=== PATIENT | male | born 1950 | race Caucasian/White ===

== ENCOUNTER 2019-04-30 10:34 | Inpatient (IN) ==
--- NOTE | 2019-03-31 08:35 | PAT Medication Instructions ---
Medication Instructions Date of Service March 31, 2019 Home Medications Garlique 1 tab PO QAM acetaminophen [Tylenol Extra Strength] 1,000 mg PO QAM amlodipine 10 mg PO QAM ascorbic acid (vitamin C) 1,000 mg PO QAM atorvastatin 20 mg PO QAM hydrochlorothiazide 25 mg PO QAM ibuprofen 800 mg PO QAM lactobacillus combination no.4 [Probiotic] 3,000 mmu cells PO QAM metformin 500 mg PO QPM multivitamin 1 tab PO QAM omeprazole 20 mg PO QAM ASK your surgeon for instructions ibuprofen 800 mg PO QAM STOP taking 2 weeks before surgery Garlique 1 tab PO QAM DO NOT take the morning of surgery ascorbic acid (vitamin C) 1,000 mg PO QAM hydrochlorothiazide 25 mg PO QAM lactobacillus combination no.4 [Probiotic] 3,000 mmu cells PO QAM multivitamin 1 tab PO QAM Take morning of surgery With a small sip of water, OTHERWISE NOTHING TO EAT OR DRINK AFTER MIDNIGHT: acetaminophen [Tylenol Extra Strength] 1,000 mg PO QAM (if needed, may be taken up to four hours before surgery) amlodipine 10 mg PO QAM atorvastatin 20 mg PO QAM omeprazole 20 mg PO QAM Other Notes If you have any questions please call us at [phone] or [phone] or [phone] or [phone]
--- NOTE | 2019-03-31 10:46 | Anesthesiology Consultation ---
Date of Service March 31, 2019 Assessment & Plan (1) Encounter for pre-operative examination: Chart Review Chart Review: Pending: Refer to Additional Notes / Consult section and Patient seen in Pre Admission Testing Teaching & Discussion Instructed NPO after midnight before surgery, except medications with 15 cc of water. Medication instructions provided according to the PAT guidelines. History Surgery Operation Date: 04/30/19 07:00 Proposed Procedures p Right Total Knee Arthroplasty - Lamin Pereira DO Height/Weight Height: 6 ft 0.75 in Weight: 107.7 kg Allergies Allergy/AdvReac Type Severity Reaction Status Date / Time Penicillins Allergy Unknown Rash Verified 03/24/19 08:06 Medications Home Medications Medication Instructions Recorded Confirmed Last Taken Garlique 1 tab PO QAM 03/24/19 03/24/19 Unknown acetaminophen [Tylenol Extra 1,000 mg PO QAM 03/24/19 03/24/19 Unknown Strength] amlodipine 10 mg PO QAM 03/24/19 03/24/19 Unknown ascorbic acid (vitamin C) [Vitamin 1,000 mg PO QAM 03/24/19 03/24/19 Unknown C] atorvastatin 20 mg PO QAM 03/24/19 03/24/19 Unknown hydrochlorothiazide 25 mg PO QAM 03/24/19 03/24/19 Unknown ibuprofen 800 mg PO QAM 03/24/19 03/24/19 Unknown lactobacillus combination no.4 3,000 mmu cells PO QAM 03/24/19 03/24/19 Unknown [Probiotic] metformin 500 mg PO QPM 03/24/19 03/24/19 Unknown multivitamin 1 tab PO QAM 03/24/19 03/24/19 Unknown omeprazole 20 mg PO QAM 03/24/19 03/24/19 Unknown Past Medical History Medical History Chronic back pain Diabetes mellitus, type 2 A1C 6.9% on pre op labs GERD (gastroesophageal reflux disease) Gout HX Hyperlipidemia Hypertension Osteoarthritis Exercise / Class Metabolic Activity II 4-5 Yardwork/Stairs/Walk up hill (Denies CP or SOB with yardwork and stairs) Past Surgical History Surgical History Bunion of great toe R/L H/O toe surgery LEFT FOOT History of carpal tunnel release R/L History of cataract surgery R/L History of herniorrhaphy History of hip surgery LEFT-DUE TO INFECTION S/P YAW History of repair of rotator cuff RIGHT History of total hip arthroplasty LEFT Nausea and vomiting after administration of anesthetic agent SEVERE Past Anesthesia History No Hx of Anesthesia Complications (other than PONV) and No Family Hx of Anesthesia Complications History of PONV No Hx of Motion Sickness and History of PONV (especially with YAW (had GA)) Social History Smoking Status: Never smoker Do You Dip or Chew Tobacco: No Hx Alcohol Use: No Hx Substance Use: No Review of Systems Pt denies any recent chest pain, shortness of breath, palpitations, cough, fever or URI. Physical Exam Vital Signs BP: 105/70 P: 61bpm SPO2: 98% RA T: 98.1 F R: 16 Constitutional + obese ENMT Mouth: + dental restorations (few gold caps); no chipped teeth and no loose teeth Thyromental Distance: < 3.5 Finger Breadths (3) Mallampati Class: III Neck + thick neck; neck extension not limited Respiratory normal respiratory effort Auscultation: lungs clear to auscultation bilaterally Cardiovascular Rate/Rhythm: regular rate and regular rhythm Heart Sounds: no murmur Vessels: no carotid bruit Extremities: no edema Testing Laboratory Results 03/31/19 10:56 03/31/19 10:56 PT 11.6 Seconds (9.0-12.0) 03/31/19 10:56 INR 1.1 (0.9-1.1) 03/31/19 10:56 APTT 28.3 Seconds (21.0-31.0) 03/31/19 10:56 Hemoglobin A1c 6.9 % (4.5-5.6) H 03/31/19 10:56 Blood Type A Positive 03/31/19 10:56 Antibody Screen NEGATIVE 03/31/19 10:56 *PER VERBAL FROM PATIENT'S PCP, HE HAS A H/O CKD AND THIS IS HIS BASELINE. Electrocardiogram Date: 03/31/19 Findings: + SB @ (58bpm with 1st degree AV block) Left axis deviation. Chest X-Ray Date: 03/31/19 Findings: + NAD
--- NOTE | 2019-03-31 11:54 | XRay Report ---
XR chest Pre-admission PA/Lat HISTORY: 68 years-old Male PAT preoperative exam. No acute chest complaints COMPARISON: None available TECHNIQUE: PA and lateral views of the chest FINDINGS: Cardiomediastinal and hilar silhouettes are within normal limits. No pneumothorax, pleural effusion, focal airspace consolidation or overt pulmonary edema. Degenerative changes of the shoulders and spin e. IMPRESSION: No acute process. The above report was generated using voice recognition software. It may contain grammatical, syntax o r spelling errors. Electronically signed by: Kennedy Mireles M.D. 03/31/2019 11:53 AM
[2019-03-31 13:02] LABS: Basophils # (auto) 0.01 K/uL (0-0.2); Basophils % (auto) 0.1 %; Eosinophils # (auto) 0.07 K/uL (0-0.5); Eosinophils % (auto) 0.9 %; Hematocrit (blood only) 42.4 % (42-52); Immature Granulocytes # (auto) 0.04 K/uL (0.00-0.02); Immature Granulocytes % (auto) 0.5 %; Lymphocytes # (auto) 2.19 K/uL (1.2-3.4); Lymphocytes % (auto) 27.5 %; Mean Corpuscular Hemoglobin 32.6 pg (25-34); Mean Corpuscular Hgb Conc 35.4 g/dL (32-36); Mean Corpuscular Volume 92.2 fL (80-100); Mean Platelet Volume 10.5 fL (7.4-10.4); Monocytes # (auto) 0.83 K/uL (0.11-0.59); Monocytes % (auto) 10.4 %; Neutrophils # (auto) 4.81 K/uL (1.4-6.5); Neutrophils % (auto) 60.6 %; Platelet Count 179 K/uL (130-400); RDW Coefficient of Variation 13.1 % (11.5-14.5); RDW Standard Deviation 43.5 fL (36.4-46.3); White Blood Count 7.95 K/uL (4.8-10.8)
[2019-03-31 13:20] LABS: INR 1.1 (0.9-1.1); Partial Thromboplastin Time 28.3 Seconds (21.0-31.0); Prothrombin Time 11.6 Seconds (9.0-12.0)
[2019-03-31 13:27] LABS: Estimated Average Glucose 151 mg/dl; Hemoglobin A1C 6.9 % (4.5-5.6)
[2019-03-31 13:33] LABS: BUN Creatinine Ratio 15.6 (10-20); Calcium 9.6 mg/dl (8.5-10.1); Creatinine Clr Calc Pharmacy 58.6 ml/min; Est GFR (African American) 51.7; Est GFR (Non-African American) 44.6; Potassium 3.3 mmol/L (3.5-5.1)
--- NOTE | 2019-04-29 14:30 | History & Physical Report ---
Date of Service April 29, 2019 Assessment & Plan (1) Osteoarthritis of right knee: We will proceed with a right total knee arthroplasty. Postoperatively he will be placed on aspirin for DVT prophylaxis. He will stay in the hospital for postop medical management. We plan to discharge him to a rehab facility. Present on Admission?: Yes History of Present Illness Chief Complaint: Primary osteoarthritis of the right knee Primary Care Provider: Александр Lujan MD Jarred is a pleasant 68-year-old male with a long history of right knee pain. X-rays and clinical examination have been diagnostic for advanced osteoarthritis of the right knee. After failing conservative treatment, he has elected to proceed with a right total knee arthroplasty. Discussions with his family, he is a bit of a hoarder. His family is concerned about him being able to take care of himself at home. We will look to send him to rehab postoperatively to make sure he is in a clean environment while the wound heals. Allergies Allergy/AdvReac Type Severity Reaction Status Date / Time Penicillins Allergy Unknown Rash Verified 03/24/19 08:06 Home Medications Home Medications Medication Instructions Recorded Confirmed Type Garlique 1 tab PO QAM 03/24/19 03/24/19 History acetaminophen [Tylenol Extra 1,000 mg PO QAM 03/24/19 03/24/19 History Strength] amlodipine 10 mg PO QAM 03/24/19 03/24/19 History ascorbic acid (vitamin C) [Vitamin 1,000 mg PO QAM 03/24/19 03/24/19 History C] atorvastatin 20 mg PO QAM 03/24/19 03/24/19 History hydrochlorothiazide 25 mg PO QAM 03/24/19 03/24/19 History ibuprofen 800 mg PO QAM 03/24/19 03/24/19 History lactobacillus combination no.4 3,000 mmu cells PO QAM 03/24/19 03/24/19 History [Probiotic] metformin 500 mg PO QPM 03/24/19 03/24/19 History multivitamin 1 tab PO QAM 03/24/19 03/24/19 History omeprazole 20 mg PO QAM 03/24/19 03/24/19 History Past Med/Surg History Medical History Chronic back pain Diabetes mellitus, type 2 A1C 6.9% on pre op labs GERD (gastroesophageal reflux disease) Gout HX Hyperlipidemia Hypertension Osteoarthritis Surgical History Bunion of great toe R/L H/O toe surgery LEFT FOOT History of carpal tunnel release R/L History of cataract surgery R/L History of herniorrhaphy History of hip surgery LEFT-DUE TO INFECTION S/P YAW History of repair of rotator cuff RIGHT History of total hip arthroplasty LEFT Nausea and vomiting after administration of anesthetic agent SEVERE Social History Preferred Language: [place] Communication Ability: Effective 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 Beliefs That Will Affect Care: None Current Living Situation: Alone Other Information That Helps Us Care for You: No Feels Safe at Home: Yes Safety Concerns: Feels Safe At This Time Smoking Status: Never smoker Do You Dip or Chew Tobacco: No ; Second Hand Exposure: No ; Hx Alcohol Use: No Hx Substance Use: No Review of Systems All systems reviewed & are unremarkable except as noted in HPI & below Physical Exam Constitutional: WD/WN, vitals as above Eyes: PERRL, conjunctivae normal, anicteric sclerae ENMT: external ear and nose normal, oropharynx normal Neck: trachea midline, no thyromegaly Respiratory: normal respiratory effort Cardiovascular: RRR, no murmur, no edema Gastrointestinal (Abdomen): normal bowel sounds, soft, nontender, no hepatosplenomegaly Musculoskeletal: On physical examination of the right knee there is a trace effusion. There is near full range of motion and no evidence of instability. There is significant tenderness palpation along the medial and lateral joint lines and over the distal femoral condyles. Psychiatric: A+Ox3, euthymic affect Results & Data Diagnostic Findings Radiographs of the right knee demonstrate advanced osteoarthritis with joint space narrowing osteophyte formation and [id number] articulation.
[~2019-04-30 10:34] MED LIST: ACETAMINOPHEN 500 MG TAB PO SCH; BUPIVACAINE 0.5 % 5 MG/1 ML PF 10ML VIAL ONE; FAMOTIDINE 20 MG TAB PO SCH; GABAPENTIN 900 MG DOSE PO SCH; LR 500ML BOLUS, THEN 15ML/HR IV SCH; LR 60ML/HR IV SCH; ORTHO JOINT ANESTHETIC ONE; ROPIVACAINE 0.5% 5 MG/ML 30 ML VIAL ONE; ROPIVACAINE 0.5% HCL/PF 150 MG, BUPIVACAINE 0.5% MPF 30 ML, EPINEPHrine 30MG/30ML (OR U... INSTIL SCH; TRANEXAMIC ACID 1,000 MG **IV Intra-op IV SCH; TRANEXAMIC ACID 1,000 MG **IV Pre-op IV SCH; VANCOMYCIN HCL 1,750 MG in SODIUM CHLORIDE 0.9% 500 ML IV SCH
[2019-04-30] MEDS ORDERED: PROPOFOL IV EMULSION 10 MG/ML 20 ML VIAL IV ONE ×3 (11:18→14:36)
[2019-04-30] MEDS ORDERED: fentaNYL citrate 100 MCG/2 ML VIAL ONE (11:18)
[2019-04-30] MEDS ORDERED: MIDAZOLAM HCL 1 MG/ML 2ML VIAL ONE (11:18)
[2019-04-30] MEDS ORDERED: LIDOCAINE HCL 2% 2 ML VIAL/AMP(20MG/ML) INFIL ONE (11:18)
--- NOTE | 2019-04-30 11:43 | History & Physical Bridge Note ---
Date of Service April 30, 2019 History & Physical Bridge Note I have examined the patient, reviewed the History & Physical and in the interval since the performance of the History & Physical I have noted the following changes of clinical significance: no changes noted
[2019-04-30] MEDS ORDERED: ATROPINE SULFATE 0.1 MG/ML 10ML SYR IV PRN (12:16)
[2019-04-30] MEDS ORDERED: ONDANSETRON INJ 2 MG/ML 2 ML VIAL IV PRN ×2 (12:16→16:52)
[2019-04-30] MEDS ORDERED: fentaNYL citrate 100 MCG/2 ML VIAL IV PRN (12:16)
[2019-04-30] MEDS ORDERED: ePHEDrine sulfate 50 MG/ML AMP IV PRN (12:16)
[2019-04-30] MEDS ORDERED: TRANEXAMIC ACID 1,000 MG in 0.9 % SODIUM CHLORIDE 100 ML IV ONE (14:05)
[2019-04-30] MEDS ORDERED: TRANEXAMIC ACID 1,000 MG in 0.9 % SODIUM CHLORIDE 100 ML IV SCH (14:15)
--- NOTE | 2019-04-30 15:12 | Operative Report ---
Post Operative Report Pre & Post Diagnosis Operation Date: 04/30/19 13:20 Pre-Op Diagnosis: Right Knee Primary Osteoarthritis Post-Op Diagnosis: Right Knee Primary Osteoarthritis Procedure Operation Date: 04/30/19 13:20 Actual Procedures p Right Total Knee Arthroplasty(Right) - Lamin Pereira DO Surgeon Lamin Pereira DO Wood Furniture Assembler Lamin Jackson PAC Estimated Blood Loss 20 Findings Consistent with Post-Op Diagnosis Specimens Right femoral and tibial bone Complications none Disposition Disposition: Recovery Room Indications Jarred is a pleasant 68-year-old male who presented my office with chronic increasing right knee pain. X-rays and clinical examination were diagnostic for primary osteoarthritis of the right knee. After failing conservative treatment, he elected to proceed with a right total knee arthroplasty. Description of Procedure Implants used: I used a Biomet Vanguard total knee arthroplasty system with a size 70 femur, 75 tibia, 37 patella, and a size 12 PS plus polyethylene bearing. All components were cemented in place with Palacos G cement. The patient arrived [facility] for the above procedure. There were seen in the preoperative holding area and the operative extremity was identified and signed. There were given a preoperative antibiotic, a spinal anesthetic and an adductor nerve block. There were taken back to the operating room and laid on the table in supine position. There were given basic sedation. The operative knee was then prepped and draped in sterile fashion. A timeout was done, and the patient and the operative extremity was properly identified. A midline incision was made directly over the patella. Dissection was taken down to the extensor mechanism. A subvastus arthrotomy was used. The medial retinaculum was released and the fat pad was mostly left intact. The knee was flexed and the ACL, PCL, and meniscus were removed. A drill was sent down the center of the femoral canal followed by an intramedullary paola. Off that paola a distal femoral cutting block was placed. 9 mm was resected off the distal femur at 5 of valgus. A posterior referencing AP sizing guide was then placed on the distal femur. The femur measured to be a size 70. 2 drill holes were placed in 3 of external rotation. A 4-in-1 cutting block was then impacted into place. Anterior posterior and chamfer cuts were then made. The posterior stabilizing box guide was then impacted into place and the box was resected for the posterior stabilizing component. The proximal tibia was then exposed. A drill was sent down the center of the tibial canal followed by an intramedullary paola. Off that paola a proximal tibial resection guide was placed. The proximal tibia was then resected. The tibia measured to be a size 75. The tibial plate was then placed in the appropriate rotation and the tibia was punched. The posterior aspect of the knee was then opened up and any additional meniscus fragments and osteophytes were removed. Trial components were then placed. I used a size 12 PS plus polyethylene insert. The knee was brought through a full range of motion and felt to be stable. The patella was then everted and 8 mm was resected off the posterior aspect of the patella. The patella measured to be a size 37. 3 peg holes were then drilled. A trial patella was placed. The knee was once again brought through a full range of motion and felt to be stable. Trial components were then removed. The surrounding soft tissues were injected with 100 cc of an orthopedic pain control cocktail. All components were then cemented into place with Palacos G cement. The final polyethylene insert was then snapped into place and the anterior bar was locked. Once cement was dry the tourniquet was deflated. Hemostasis was obtained. A dilute betadyne lavage was then done for 3 minutes. The joint was then irrigated with normal saline solution. The subvastus arthrotomy was then closed with #1 Vicryl suture. The skin was closed with 2-0 Vicryl, 3-0V lock suture, and singh. A soft compressive dressing was placed. The patient was then transferred to a hospital bed and taken to the postanesthesia care unit in stable condition. Sandeep bradley tolerated the procedure well. I attest to the content of the Intraoperative Record and any orders documented therein. Any exceptions are noted below.
--- NOTE | 2019-04-30 15:42 | Anesthesiology Progress Note ---
Date of Service April 30, 2019 Anesthesia Post Procedure Vital Signs Vital Signs: Temp Pulse Resp BP Pulse Ox 04/30/19 11:17 36.4 C L 64 20 128/82 99 Transfer of Care Handoff Completed per policy Notes Mental Status: alert / awake / arousable Patient Amnestic to Procedure: Yes Nausea / Vomiting: adequately controlled Pain: adequately controlled Airway Patency, RR, SpO2: stable & adequate BP & HR: stable & adequate Hydration State: stable & adequate Neuraxial Anesthesia: was administered and sensory block is resolving Anesthetic Complications: no major complications apparent and Pt Satisfied with anesthetic care
--- NOTE | 2019-04-30 15:54 | XRay Report ---
XR knee RT 2V routine HISTORY: 68 years-old Male Surgical Post Op postoperative exam. Right knee total joint arthroplasty COMPARISON: Right knee radiographs 02/17/2019 TECHNIQUE: 2 views of the right knee FINDINGS: Right knee total joint arthroplasty and patella resurfacing. Anterior midline skin singh are noted with expected postsurgical soft tissue swelling and deep tissue air. Surgical drainage catheter is no yon. Satisfactory alignment without acute fracture or retained foreign body. IMPRESSION: Satisfactory alignment of the right knee total joint arthroplasty. The above report was generated using voice recognition software. It may contain grammatical, syntax o r spelling errors. Electronically signed by: Kennedy Mireles M.D. 04/30/2019 3:53 PM
[2019-04-30] MEDS ORDERED: METOCLOPRAMIDE HCL INJ 5 MG/ML 2 ML VIAL IV PRN (16:52)
[2019-04-30] MEDS ORDERED: HYDROmorphone INJ 0.5 MG/0.5 ML SYR IV PRN (16:52)
[2019-04-30] MEDS ORDERED: BISACODYL 10 MG SUPP PR PRN (16:52)
[2019-04-30] MEDS ORDERED: MAGNESIUM HYDROXIDE SUSP 30 ML UDC PO PRN (16:52)
[2019-04-30] MEDS ORDERED: NALOXONE HCL 0.4 MG/1 ML VIAL/CARP IV PRN (16:52)
[2019-04-30] MEDS ORDERED: PHARMACY GLYCEMIC MGMT CONSULT PRN (18:24)
[2019-04-30] MEDS: INSULIN ASPART 100 UNITS/ML 3 ML PEN SC SCH ×2 (19:08→20:45)
[2019-04-30] MEDS: DOCUSATE SODIUM 100 MG CAP PO SCH (20:42)
[2019-04-30] MEDS: ASPIRIN 81 MG ECTAB PO SCH (20:42)
[2019-04-30] MEDS: KETOROLAC TROMETHAMINE 15 MG/ML VIAL IV SCH (20:42)
[2019-04-30] MEDS: SODIUM CHLORIDE 0.9% 1000ML 1,000 ML IV SCH (20:42)
[2019-04-30] MEDS: CEFAZOLIN 2000MG 2,000 MG/15 ML SYR IV SCH (20:42)
[2019-04-30] MEDS: SENNA 8.6 MG TAB PO SCH (20:42)
[2019-04-30] MEDS ORDERED: METFORMIN HCL 500 MG TAB PO SCH (21:00)
[2019-04-30] MEDS: ACETAMINOPHEN 500 MG TAB PO SCH (21:46)
[2019-05-01] MEDS: KETOROLAC TROMETHAMINE 15 MG/ML VIAL IV SCH ×4 (03:02→20:59)
[2019-05-01] MEDS ORDERED: Nursing to Pharmacy Communication ONE (03:13)
[2019-05-01] MEDS: SODIUM CHLORIDE 0.9% 1000ML 1,000 ML IV SCH (03:14)
[2019-05-01] MEDS: CEFAZOLIN 2000MG 2,000 MG/15 ML SYR IV SCH (03:50)
[2019-05-01] MEDS: ACETAMINOPHEN 500 MG TAB PO SCH ×3 (05:44→21:00)
[2019-05-01 06:46] LABS: Hemoglobin 12.4 g/dL (14.0-18.0); Mean Corpuscular Hemoglobin 32.1 pg (25-34); Mean Corpuscular Hgb Conc 35.4 g/dL (32-36); Mean Corpuscular Volume 90.7 fL (80-100); Mean Platelet Volume 9.9 fL (7.4-10.4); Platelet Count 156 K/uL (130-400); RDW Coefficient of Variation 12.7 % (11.5-14.5); RDW Standard Deviation 42.1 fL (36.4-46.3); Red Blood Count 3.86 M/uL (4.7-6.1); White Blood Count 11.08 K/uL (4.8-10.8)
[2019-05-01 07:18] LABS: BUN Creatinine Ratio 16.9 (10-20); Calcium 8.2 mg/dl (8.5-10.1); Creatinine Clr Calc Pharmacy 61.5 ml/min; Est GFR (African American) 55.4; Est GFR (Non-African American) 47.8; Potassium 3.8 mmol/L (3.5-5.1)
[2019-05-01] MEDS: OXYCODONE HCL IR 5 MG TAB (IMMEDIATE RELEASE) PO PRN ×2 (07:19→15:39)
[2019-05-01] MEDS: AMLODIPINE BESYLATE 5 MG TAB PO SCH (07:19)
[2019-05-01] MEDS: ATORVASTATIN 20 MG TAB PO SCH (07:19)
[2019-05-01] MEDS: DOCUSATE SODIUM 100 MG CAP PO SCH ×2 (07:20→20:58)
[2019-05-01] MEDS: ASPIRIN 81 MG ECTAB PO SCH ×2 (07:20→20:59)
[2019-05-01] MEDS: MULTIVITAMIN TAB PO SCH (07:20)
[2019-05-01] MEDS: hydroCHLOROthiazide 25 MG TAB PO SCH (07:20)
[2019-05-01] MEDS: PANTOprazole 40 MG TAB PO SCH (07:20)
[2019-05-01] MEDS: INSULIN ASPART 100 UNITS/ML 3 ML PEN SC SCH ×4 (08:53→20:59)
[2019-05-01] MEDS ORDERED: GARLIQUE PO SCH (09:00)
[2019-05-01] MEDS ORDERED: INSULIN GLARGINE SOLOSTAR 100 UNITS/ML 3 ML PEN SC ONE (09:00)
--- NOTE | 2019-05-01 09:26 | Orthopedic Progress Note ---
Date of Service May 01, 2019 Assessment & Plan (1) Osteoarthritis of right knee: Overall is doing very well. Is not having much pain in the right knee. He can be seen by physical therapy today for ambulation and range of motion exercises. He plans to go to rehab upon discharge on Friday. He is on aspirin for DVT prophylaxis. Present on Admission?: Yes Subjective Jarred was seen and examined at bedside this morning. Overall he is doing very well. Is not having much pain in the right knee. He is Alcon been ambulating on it. He has no complaints. Physical Exam Musculoskeletal: On physical examination of the right knee, the dressing is clean and dry. He has active dorsiflexion and plantarflexion of his right ankle . Sensations intact throughout. Results & Data Vital Signs (Past 12 Hours) Vital Signs Temp Pulse Resp BP Pulse Ox 05/01/19 07:18 36.9 C 60 18 122/72 98 05/01/19 03:15 36.6 C 62 18 120/75 98 04/30/19 23:32 36.5 C 63 18 109/67 97 Laboratory Results H & H 03/31/19 05/01/19 Range/Units 10:56 06:27 Hgb 15.0 12.4 L (14.0-18.0) g/dL Hct 42.4 35.0 L (42-52) % Coagulation 03/31/19 Range/Units 10:56 INR 1.1 (0.9-1.1) Diagnostic Findings Postoperative x-rays of the right knee show the prosthesis to be in anatomic alignment without any evidence of fracture, dislocation, or loosening. PG Care Time/CCT Total # of Minutes Spent Total Time Spent with Patient: Total time spent is greater than 50% in coordination of care (as documented) at patient's floor/unit and/or counseling patient:
--- NOTE | 2019-05-01 11:42 | Pharmacy Report ---
Glycemic Control Consultation - Date of Service May 01, 2019 - Scope Scope: Glycemic Pharmacist consulted by Dr Jackson on 04/30/19 for glycemic control and to write orders per [facility], located [facility] inpatient glycemic control protocol - Objective Weight: 105.3 kg Accuchecks BSG (last 24hrs): 04/30/19 04/30/19 04/30/19 11:17 15:40 17:13 Glucose POC Glucose 115 H 114 H 120 H 04/30/19 05/01/19 05/01/19 20:41 06:27 08:07 Glucose 141 H POC Glucose 166 H 166 H Laboratory Data (last 24hrs): 05/01/19 06:27 Potassium 3.8 Carbon Dioxide 27 Anion Gap 7.0 Creatinine 1.50 H Est Cr Clr Drug Dosing 61.5 HbA1c: Hemoglobin A1c 6.9 % (4.5-5.6) H 03/31/19 10:56 - Recent Pertinent Medications Outpatient Anti-diabetic Regimen: * Metformin monotx * A1c = 6.9 % 03/31/19 - Assessment & Plan Assessment & Plan: ASSESSMENT: * Pt is POD 1 for R TKA. BSGs over the previous 18hrs slightly elevated. No steroids given pre/intra operatively. He is ordered a diet. PLAN FOR INPATIENT GLYCEMIC CONTROL: * Holding outpatient oral diabetes medications * Basal insulin * Lantus 18u x1 given this AM for elevated BSGs. * Bolus insulin * NovoLog per scale ACHS or Q6hrs while NPO * Goal Range: Low 110 mg/dL - High 140 mg/dL * Correction Factor: 20 mg/dL/unit * Nutritional / Prandial insulin per carb ratio of 1 unit per 7 grams CHO consumed * Please note that the plan above was derived based on current level of insulin resistance and hospital stress. These recommendations are appropriate for inpatient admission only. Plan of care upon discharge will need to be reassessed to avoid potential outpatient hypo/hyperglycemia. Thank you.
[2019-05-01] MEDS: SENNA 8.6 MG TAB PO SCH (20:58)
[2019-05-02] MEDS: OXYCODONE HCL IR 5 MG TAB (IMMEDIATE RELEASE) PO PRN ×4 (00:13→22:02)
[2019-05-02] MEDS: KETOROLAC TROMETHAMINE 15 MG/ML VIAL IV SCH ×3 (02:38→14:10)
[2019-05-02] MEDS: ACETAMINOPHEN 500 MG TAB PO SCH ×3 (05:44→21:00)
[2019-05-02] MEDS: DOCUSATE SODIUM 100 MG CAP PO SCH ×2 (07:43→20:59)
[2019-05-02] MEDS: MULTIVITAMIN TAB PO SCH (07:46)
[2019-05-02] MEDS: ASPIRIN 81 MG ECTAB PO SCH ×2 (07:46→21:00)
[2019-05-02] MEDS: ATORVASTATIN 20 MG TAB PO SCH (07:46)
[2019-05-02] MEDS: PANTOprazole 40 MG TAB PO SCH (07:46)
[2019-05-02] MEDS: hydroCHLOROthiazide 25 MG TAB PO SCH (07:47)
[2019-05-02] MEDS: AMLODIPINE BESYLATE 5 MG TAB PO SCH (07:47)
[2019-05-02] MEDS: INSULIN ASPART 100 UNITS/ML 3 ML PEN SC SCH ×4 (07:51→22:48)
--- NOTE | 2019-05-02 07:55 | Orthopedic Progress Note ---
Date of Service May 02, 2019 Assessment & Plan (1) Osteoarthritis of right knee: Overall is doing very well. He will do stairs today with physical therapy. He is unsure at this time if he wants to go to a rehab facility or home on Friday. We will see how he does. We will plan to discharge him tomorrow. He is currently on aspirin for DVT prophylaxis. Present on Admission?: Yes Subjective Jarred was seen and examined at bedside this morning. Overall he is doing very well. He is having some soreness in the knee but has been up and ambulating. He has no other complaints. Physical Exam Musculoskeletal: Physical examination of the right knee, the legs out in full extension. The dressing has been changed. He has active dorsiflexion and plantarflexion of the right ankle. Sensations intact throughout. Results & Data Vital Signs (Past 12 Hours) Vital Signs Temp Pulse Pulse Resp BP Pulse Ox 05/02/19 07:45 62 120/76 05/02/19 06:49 36.6 C 61 18 118/70 97 05/01/19 22:58 36.7 C 63 18 124/69 98 PG Care Time/CCT Total # of Minutes Spent Total Time Spent with Patient: Total time spent is greater than 50% in coordination of care (as documented) at patient's floor/unit and/or counseling patient:
[2019-05-02] MEDS ORDERED: GLUCOSE 40% GEL 15 GM TUBE PO PRN (13:30)
[2019-05-02] MEDS ORDERED: DEXTROSE 50% 50 ML SYRINGE IV PRN (13:30)
[2019-05-02] MEDS ORDERED: GLUCOSE 10 TABS/TUBE PO PRN (13:30)
[2019-05-02] MEDS ORDERED: CARBOHYDRATES FOR HYPOGLYCEMIA PO PRN (13:30)
[2019-05-02] MEDS ORDERED: GLUCAGON FOR INJ 1 MG VIAL IM PRN (13:30)
[2019-05-02] MEDS: SENNA 8.6 MG TAB PO SCH (20:59)
[2019-05-03] MEDS: OXYCODONE HCL IR 5 MG TAB (IMMEDIATE RELEASE) PO PRN ×3 (02:08→13:03)
[2019-05-03] MEDS: ACETAMINOPHEN 500 MG TAB PO SCH (05:05)
[2019-05-03] MEDS: MULTIVITAMIN TAB PO SCH (07:11)
[2019-05-03] MEDS: PANTOprazole 40 MG TAB PO SCH (07:11)
[2019-05-03] MEDS: hydroCHLOROthiazide 25 MG TAB PO SCH (07:11)
[2019-05-03] MEDS: ASPIRIN 81 MG ECTAB PO SCH (07:11)
[2019-05-03] MEDS: AMLODIPINE BESYLATE 5 MG TAB PO SCH (07:11)
[2019-05-03] MEDS: DOCUSATE SODIUM 100 MG CAP PO SCH (07:12)
[2019-05-03] MEDS: ATORVASTATIN 20 MG TAB PO SCH (07:12)
[2019-05-03] MEDS: INSULIN ASPART 100 UNITS/ML 3 ML PEN SC SCH ×2 (07:33→12:21)
--- NOTE | 2019-05-03 08:27 | Anesthesiology Progress Note ---
Date of Service May 03, 2019 Anesthesia Post Procedure Vital Signs Vital Signs: Temp Pulse Resp BP Pulse Ox 05/03/19 06:35 37.1 C 77 16 127/69 97 05/02/19 23:25 36.8 C 71 16 113/69 99 05/02/19 15:34 36.9 C 64 16 114/68 97 Pain Intensity Right Knee: Pain Intensity: 3 Notes Mental Status: alert / awake / arousable and participated in evaluation Patient Amnestic to Procedure: Yes Nausea / Vomiting: adequately controlled Pain: adequately controlled Airway Patency, RR, SpO2: stable & adequate BP & HR: stable & adequate Hydration State: stable & adequate Anesthetic Complications: no major complications apparent and Pt Satisfied with anesthetic care
--- NOTE | 2019-05-04 19:36 | Discharge Summary ---
Date of Service May 04, 2019 Admission HPI Per Admitting Provider Jarred is a pleasant 68-year-old male with a long history of right knee pain. X-rays and clinical examination have been diagnostic for advanced osteoarthritis of the right knee. After failing conservative treatment, he has elected to proceed with a right total knee arthroplasty. Discussions with his family, he is a bit of a hoarder. His family is concerned about him being able to take care of himself at home. We will look to send him to rehab postoperatively to make sure he is in a clean environment while the wound heals. Principal Diagnosis Right total knee arthroplasty Discharge Data Allergies Allergy/AdvReac Type Severity Reaction Status Date / Time Penicillins Allergy Unknown Rash Verified 03/24/19 08:06 Consultations 04/30/19 16:52 Consult Case Management - Discharge Planning Routine Procedures Performed Operation Date: 04/30/19 13:20 Actual Procedures p Right Total Knee Arthroplasty(Right) - Lamin Pereira DO Ordered Studies 04/30/19 05:00 US - OR guided needle placemen Routine Hospital Course (1) Osteoarthritis of right knee: On April 30, 2019 Jarred arrived at [facility] and underwent a right total knee arthroplasty without complication. He had a spinal anesthetic and a right abductor nerve block. Postoperatively he was started on aspirin for DVT prophylaxis and discharged to general orthopedic floors. His hospital course was uneventful. On postop day #1 his H&H was stable and his pain was well controlled. He was able to ambulate well with physical therapy. On postop day #2 he continued to do fairly well. The dressing was changed. He worked a little bit more with physical therapy. He was having a little bit more pain in his knee which was to be expected. On postop day #3 he continued to do well. He was able to do stairs with physical therapy and felt safe going home. He was then discharged home with home health. He will follow-up with orthopedics in 2 weeks. Total Time Total Time Spent Total Time Spent (In Minutes): 20 Discharge Plan Discharge Items Patient Disposition: Home - Self-Care Reason For Visit: RIGHT KNEE DEGENERATIVE JOINT DISEASE Discharge Diagnosis: Right total knee arthroplasty Discharge Goals: Decrease discomfort and Improve function Activity: Per 'Additional Instructions' section Non-emergency contact: Surgeon Call non-emergency contact if: your wound has increased redness and your wound has increased drainage Follow-up/Referrals: Александр Lujan MD [Primary Care Provider] - Diet: Regular Addtl Provider Instructions: Activity and Therapy Recommendations: * If you are using [facility] then therapy will be provided at your home until they feel you have accomplished all of your goals. * If you are using [facility] then Physical Therapy will be provided until they feel you are ready to start Outpatient Physical Therapy. * If you are not using home therapy then Outpatient Physical Therapy should start about 3-5 days from your day of surgery. Therapy will last about 6-10 weeks * It is important not to put a pillow under your knee when you are relaxing or sleeping. It is just as important to make sure you are getting your knee perfectly straight as it is to regain your knee bend. * You were shown a series of exercises in the hospital. Do these exercises three times each day including the exercises you were shown in physical therapy. * Get up and walk several times each day. For the first four weeks, try not to stand or walk for more than one hour at a time. If you do stand or walk for more than one hour, you will not hurt anything, but your leg will likely swell. * As you feel comfortable, you may change from the walker or crutches to a cane and then to independent walking. Medications: * Narcotic You will likely be sent home from the hospital with a prescription for the narcotic pain medication that worked best throughout your stay. * Aspirin Most patients will be required to take Aspirin 81mg twice a day for 6 weeks after surgery. This is obtained [id number] and a prescription is not necessary. * Other medications may be prescribed for specific circumstances. If you have any questions, please call the office at . * Resume previous home medications unless otherwise instructed TEDs/Elastic Stockings: The white elastic stockings help limit swelling and prevent blood clots from forming in your legs.~ The more you wear them, the more they work. Wear them for six weeks. Dressing Care: If the incision is not draining then you may leave the singh open to air. If there is a little bit of drainage or if the singh are getting stuck on your clothing then cover the incision with a dry dressing. The singh will be removed at your 2 week follow-up appointment. Showering: You may shower 5 days from the day of surgery. Let the soapy shower water run over the singh and pat them dry. Do not scrub or soak the incision. Things To Watch For: * Drainage from the incision site that occurs more than one week after your surgery. * Increased redness at the incision site. * Fever above 102 degrees Fahrenheit. * Unusual chest pain or shortness of breath. * Call [facility] at with any of the above problems Follow-Up Visit: Follow-up with Dr. Pereira 2-3 weeks after your day of surgery. An appointment was probably scheduled when you signed-up for surgery in the office. If you have any questions call Office Instructions: More detailed instructions as well as Frequently Asked Questions were provided in a folder by our office when you signed-up for surgery. Please review these instructions when you get home. If you have any further questions or concerns, please feel free to call the office at [phone] Prescriptions: New oxycodone 5 mg Tablet 5 mg PO Q4H PRN (Reason: pain) Qty: 40 RF: 0 aspirin [Lo-Dose Aspirin] 81 mg tablet,delayed release (DR/EC) 81 mg PO BID Qty: 84 RF: 0 Continued metformin 500 mg Tablet 500 mg PO QPM RF: 0 atorvastatin 20 mg Tablet 20 mg PO QAM RF: 0 amlodipine 10 mg Tablet 10 mg PO QAM RF: 0 hydrochlorothiazide 25 mg Tablet 25 mg PO QAM RF: 0 omeprazole 20 mg Tablet,Delayed Release (Dr/Ec) 20 mg PO QAM RF: 0 multivitamin Tablet 1 tab PO QAM RF: 0 ascorbic acid (vitamin C) [Vitamin C] 1,000 mg Tablet 1,000 mg PO QAM RF: 0 ibuprofen 200 mg Capsule 800 mg PO QAM RF: 0 acetaminophen [Tylenol Extra Strength] 500 mg Tablet 1,000 mg PO QAM RF: 0 Probiotic 3 billion cell Capsule 3,000 mmu cells PO QAM RF: 0 Garlique 1 tab PO QAM RF: 0 Stand-Alone Forms: [facility]/Other Patient Handouts: Diabetes Type 2 Coping Discharge Orders: Discharge Order (Routine); Ordered 05/02/19 Ordered By: Lamin Pereira Admission Data Admit Date/Time: 04/30/19 15:37 Attending Provider: Lamin Pereira Admit Provider: Lamin Pereira Primary Care Provider: Александр Lujan Service: Surgical Services Other Interventions: Discharge Summary Assessment (RN) Last Done: 05/03/19 08:29 DC Date/Time DO NOT enter until pt leaves facility: 05/03/19 13:09
== END 2019-05-03 13:09 | disposition home or self-care (01) | DRG 470 ==
LOC: ASU 10:34 → 3E 15:37

== ENCOUNTER 2021-11-26 07:44 | Observation (INO) ==
--- NOTE | 2021-11-01 10:26 | PAT Medication Instructions ---
Medication Instructions Date of Service November 01, 2021 Home Medications Garlique 1 tab PO QAM acetaminophen 500 mg tablet (Tylenol Extra Strength) 1,000 mg PO QAM amlodipine 10 mg tablet 10 mg PO QAM ascorbic acid (vitamin C) 1,000 mg tablet (Vitamin C) 1,000 mg PO QAM atorvastatin 20 mg tablet 20 mg PO QAM ibuprofen 200 mg capsule 800 mg PO QAM lactobacillus combination no.4 3 billion cell capsule (Probiotic) 3,000 mmu cells PO QAM metformin 500 mg tablet 500 mg PO QPM multivitamin 1 tab PO QAM omeprazole 20 mg tablet,delayed release 20 mg PO QAM lisinopril 10 mg tablet 10 mg PO QAM ASK your surgeon for instructions ibuprofen 200 mg capsule 800 mg PO QAM STOP taking 2 weeks before surgery Garlique 1 tab PO QAM DO NOT take the morning of surgery lisinopril 10 mg tablet 10 mg PO QAM ascorbic acid (vitamin C) 1,000 mg tablet (Vitamin C) 1,000 mg PO QAM lactobacillus combination no.4 3 billion cell capsule (Probiotic) 3,000 mmu cells PO QAM multivitamin 1 tab PO QAM Take morning of surgery With a small sip of water, OTHERWISE NOTHING TO EAT OR DRINK AFTER MIDNIGHT: acetaminophen 500 mg tablet (Tylenol Extra Strength) 1,000 mg PO QAM (okay to take up to 4 hours prior to surgery if needed) amlodipine 10 mg tablet 10 mg PO QAM atorvastatin 20 mg tablet 20 mg PO QAM omeprazole 20 mg tablet,delayed release 20 mg PO QAM Take evening before surgery metformin 500 mg tablet 500 mg PO QPM Other Notes If you have any questions please call us at [phone] or [phone] or [phone] or [phone]
--- NOTE | 2021-11-05 14:39 | Anesthesiology Consultation ---
Date of Service November 05, 2021 Assessment & Plan (1) Encounter for pre-operative examination: Chart Review Chart Review: Acceptable Risk for Surgery (pending preop Covid testing results) and Patient seen in Pre Admission Testing - Check BSG AM DOS Per PAT appt on 11/05/21, patient denies any recent travel or large group activities. No known Covid positive exposures or Covid related symptoms. No known Covid infection in the past 90 days. Pt is NOT vaccinated for Covid. Preop Covid testing scheduled 11/22/21= will await results. Educated on importance of self quarantining, social distancing and wearing mask in public for the patient one week prior to surgery and after Covid testing done History Surgery Operation Date: 11/26/21 08:50 Proposed Procedures p Left Total Knee Arthroplasty - Lamin Pereira, Height/Weight Height: 6 ft 1 in Weight: 109.6 kg Allergies Allergy/AdvReac Type Severity Reaction Status Date / Time Penicillins Allergy Unknown Rash Verified 10/29/21 12:10 Medications Home Medications Medication Instructions Recorded Confirmed Last Taken Garlique 1 tab PO QAM 03/24/19 10/29/21 04/16/19 08:00 acetaminophen 500 mg tablet 1,000 mg PO QAM 03/24/19 10/29/21 04/28/19 08:00 (Tylenol Extra Strength) amlodipine 10 mg tablet 10 mg PO QAM 03/24/19 10/29/21 04/30/19 09:00 ascorbic acid (vitamin C) 1,000 mg 1,000 mg PO QAM 03/24/19 10/29/21 04/16/19 08:00 tablet (Vitamin C) atorvastatin 20 mg tablet 20 mg PO QAM 03/24/19 10/29/21 04/30/19 09:00 ibuprofen 200 mg capsule 800 mg PO QAM 03/24/19 10/29/21 04/23/19 08:00 lactobacillus combination no.4 3 3,000 mmu cells PO QAM 03/24/19 10/29/21 04/29/19 08:00 billion cell capsule (Probiotic) metformin 500 mg tablet 500 mg PO QPM 03/24/19 10/29/21 04/29/19 12:00 multivitamin 1 tab PO QAM 03/24/19 10/29/21 Unknown omeprazole 20 mg tablet,delayed 20 mg PO QAM 03/24/19 10/29/21 04/30/19 09:00 release lisinopril 10 mg tablet 10 mg PO QAM 02/23/21 10/29/21 Unknown Elderberry See Rx Instructions .ROUTE .COMPLEX 11/05/21 11/05/21 Unknown Vitamin D3 See Rx Instructions .ROUTE .COMPLEX 11/05/21 11/05/21 Unknown magnesium glycinate See Rx Instructions .ROUTE .COMPLEX 11/05/21 11/05/21 Unknown vitamin A See Rx Instructions .ROUTE .COMPLEX 11/05/21 11/05/21 Unknown vitamin B complex (B 1 tab PO DAILY 11/05/21 11/05/21 Unknown Complex-Vitamin B12) Past Medical History Medical History (Updated 11/05/21 @ 16:05 by Beth Lantigua PA-C) Chronic back pain CKD (chronic kidney disease), stage III Per PCP records Diabetes mellitus, type 2 Glucose stable GERD (gastroesophageal reflux disease) Well controlled and stable Gout HX- no recent issues History 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 History of COVID-19 03/2021 - low blood pressure, dizzy, loss of taste and smell, headache no current problems Hyperlipidemia Hypertension Exercise / Class Metabolic Activity II 4-5 Yardwork/Stairs/Walk up hill (one flight of stairs - no chest pain or SOB ) Past Surgical History Surgical History H/O toe surgery LEFT FOOT History of bunionectomy of both great toes History of carpal tunnel release R/L History of cataract surgery R/L History of herniorrhaphy History of hip surgery LEFT-DUE TO INFECTION S/P YAW History of left hip replacement + revision surgery History of repair of rotator cuff RIGHT History of right knee joint replacement History of surgery Left quadriceps repair History of total hip arthroplasty LEFT Nausea and vomiting after administration of anesthetic agent SEVERE Past Anesthesia History No Hx of Anesthesia Complications (with exception PONV ) and No Family Hx of Anesthesia Complications History of PONV No Hx of Motion Sickness and History of PONV Social History Smoking Status: Never smoker Do You Dip or Chew Tobacco: No Hx Alcohol Use: No Hx Substance Use: No substance use type: does not use Review of Systems Occ cough- chronic/stable Sleeps alone- unknown regarding apnea/snoring Patient denies chest pain, shortness of breath, dyspnea on exertion, wheezing, palpitations. No hx of seizures, stroke, SC. No hx of blood clots or blood transfusions Physical Exam Vital Signs VITALS BP 131/77 P 69 TEMP 97.8 SP02 97% RESP 16 Constitutional no acute distress ENMT Mouth: no TMJ clicking Thyromental Distance: < 3.5 Finger Breadths (3.0) Mallampati Class: III Crowns to molars Neck neck extension not limited Respiratory normal respiratory effort; no respiratory distress Auscultation: lungs clear to auscultation bilaterally; no wheezes Cardiovascular Rate/Rhythm: regular rate and regular rhythm Heart Sounds: no murmur Vessels: no carotid bruit Heart sounds diminished throughout Musculoskeletal Spine: no pain with cervical ROM Extremities: extremities normal to inspection Psychiatric Orientation: alert Lab Results Anesthesia Preop Results Results Anesthesia Widget: WBC 7.24 K/uL (4.8-10.8) 11/05/21 Hgb 14.9 g/dL (14.0-18.0) 11/05/21 Hct 43.8 % (42-52) 11/05/21 Plt 190 K/uL (130-400) 11/05/21 Na 141 mmol/L (136-145) 11/05/21 K 4.5 mmol/L (3.5-5.1) 11/05/21 Cl 107 mmol/L (98-107) 11/05/21 CO2 25 mmol/L (21-32) 11/05/21 BUN 21 mg/dl (6-23) 11/05/21 Creat 1.65 mg/dl (0.6-1.4) H 11/05/21 Glucose Level 139 mg/dl (70-99(Fasting)) H 11/05/21 PT 10.4 Seconds (9.0-12.0) 11/05/21 PTT 26.9 Seconds (21.0-31.0) 11/05/21 INR 1.0 (0.9-1.1) 11/05/21 HA1c 6.2 % (4.5-5.6) H 11/05/21 Blood Type A Positive 11/05/21 Antibody Screen NEGATIVE 11/05/21 Lab Comments: Elevated creatinine since at least 2019- relatively stable- will send labs to PCP for continuity of care Testing Electrocardiogram Date: 02/28/21 Sinus bradycardia with first-degree AV block at 56 bpm. Left axis deviation. When compared to EKG from March 31, 2019no extremity changes found per cardio. Chest X-Ray Date: 02/28/21 Findings: + NAD Stress Test Date: 03/26/17 Type: nuclear Negative stress portion of regadenoson sestamibi stress. Myocardial perfusion imaging study appears normal following pharmacologic stress with regadenoson. No significant perfusion defect or ischemia is identified. Normal regional and global LV function. LVEF 69% post stress and 65% at rest.
--- NOTE | 2021-11-22 09:03 | History & Physical Report ---
Date of Service November 22, 2021 Assessment & Plan (1) Osteoarthritis of left knee: We will proceed with a left total knee arthroplasty. Postoperatively he will be placed on aspirin for DVT prophylaxis and kept overnight in the hospital for postoperative medical management. He plans to go to [facility] in [place] upon discharge. History of Present Illness Chief Complaint: Osteoarthritis of the left knee. Primary Care Provider: Александр Lujan MD Jarred is a pleasant 71-year-old male who is been doing with chronic worsening left knee pain. He has a history of an IM nail in his left leg. He has a history of a left quad repair back in the early 1980s. X-rays and clinical examination of the left knee have been diagnostic for osteoarthritis. I did a right knee replacement on him in 2019 he is done well with that. He elected proceed with a left total knee arthroplasty. Allergies Allergy/AdvReac Type Severity Reaction Status Date / Time Penicillins Allergy Unknown Rash Verified 10/29/21 12:10 Home Medications Medication Instructions Recorded Confirmed Type Garlique 1 tab PO QAM 03/24/19 10/29/21 History acetaminophen 500 mg tablet 1,000 mg PO QAM 03/24/19 10/29/21 History (Tylenol Extra Strength) amlodipine 10 mg tablet 10 mg PO QAM 03/24/19 10/29/21 History ascorbic acid (vitamin C) 1,000 mg 1,000 mg PO QAM 03/24/19 10/29/21 History tablet (Vitamin C) atorvastatin 20 mg tablet 20 mg PO QAM 03/24/19 10/29/21 History ibuprofen 200 mg capsule 800 mg PO QAM 03/24/19 10/29/21 History lactobacillus combination no.4 3 3,000 mmu cells PO QAM 03/24/19 10/29/21 History billion cell capsule (Probiotic) metformin 500 mg tablet 500 mg PO QPM 03/24/19 10/29/21 History multivitamin 1 tab PO QAM 03/24/19 10/29/21 History omeprazole 20 mg tablet,delayed 20 mg PO QAM 03/24/19 10/29/21 History release lisinopril 10 mg tablet 10 mg PO QAM 02/23/21 10/29/21 History Elderberry See Rx Instructions .ROUTE .COMPLEX 11/05/21 11/05/21 History Vitamin D3 See Rx Instructions .ROUTE .COMPLEX 11/05/21 11/05/21 History magnesium glycinate See Rx Instructions .ROUTE .COMPLEX 11/05/21 11/05/21 History vitamin A See Rx Instructions .ROUTE .COMPLEX 11/05/21 11/05/21 History vitamin B complex (B 1 tab PO DAILY 11/05/21 11/05/21 History Complex-Vitamin B12) Past Med/Surg History Medical History Chronic back pain CKD (chronic kidney disease), stage III Per PCP records Diabetes mellitus, type 2 Glucose stable GERD (gastroesophageal reflux disease) Well controlled and stable Gout HX- no recent issues History 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 History of COVID-19 03/2021 - low blood pressure, dizzy, loss of taste and smell, headache no current problems Hyperlipidemia Hypertension Surgical History H/O toe surgery LEFT FOOT History of bunionectomy of both great toes History of carpal tunnel release R/L History of cataract surgery R/L History of herniorrhaphy History of hip surgery LEFT-DUE TO INFECTION S/P YAW History of left hip replacement + revision surgery History of repair of rotator cuff RIGHT History of right knee joint replacement History of surgery Left quadriceps repair History of total hip arthroplasty LEFT Nausea and vomiting after administration of anesthetic agent SEVERE Social History Smoking Status: Never smoker Second Hand Exposure: No; Hx Alcohol Use: No Hx Substance Use: No Preferred Language: British Communication Ability: Effective Visual Impairment: No Limitations Hearing Ability: Normal 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 Physical Exam On physical examination of the left knee, he has a varus deformity. His range of motion from 10 to 120 degrees. No instability. He has pain of the distal medial femoral condyle and over the medial joint line. Constitutional WD/WN, vitals as above Eyes PERRL, conjunctivae normal, anicteric sclerae ENMT external ear and nose normal, oropharynx normal Neck trachea midline, no thyromegaly Respiratory normal respiratory effort Cardiovascular RRR, no murmur, no edema Gastrointestinal (Abdomen) normal bowel sounds, soft, nontender, no hepatosplenomegaly Psychiatric A+Ox3, euthymic affect Results & Data Results & Data Laboratory Results . Diagnostic Findings X-rays of the left knee show advanced osteoarthritis with joint space narrowing, osteophyte formation, and [id number] circulation. PG Care Time/CCT Total # of Minutes Spent Total Time Spent with Patient: Total time spent is greater than 50% in coordination of care (as documented) at patient's floor/unit and/or counseling patient: Coding Level of Care Code None Diagnoses Osteoarthritis of left knee M17.12
[~2021-11-26 07:44] MED LIST changes: +GABAPENTIN 300 MG CAP PO SCH; -GABAPENTIN 900 MG DOSE PO SCH; +Ketorolac (*for OR use only*) 30 MG, dexAMETHasone 4 MG, KETAMINE HCL (**OR use only) 1... INFIL SCH; +MIDAZOLAM HCL 1 MG/ML 2ML VIAL ONE; -ORTHO JOINT ANESTHETIC ONE; -ROPIVACAINE 0.5% HCL/PF 150 MG, BUPIVACAINE 0.5% MPF 30 ML, EPINEPHrine 30MG/30ML (OR U... INSTIL SCH; -VANCOMYCIN HCL 1,750 MG in SODIUM CHLORIDE 0.9% 500 ML IV SCH; +ceFAZolin 2000MG 2,000 MG/15 ML SYR IV SCH; +dexAMETHasone 4 MG TAB PO SCH; +fentaNYL citrate 100 MCG/2 ML VIAL ONE
[2021-11-26] MEDS ORDERED: ONDANSETRON INJ 2 MG/ML 2 ML VIAL IV PRN ×2 (08:50→14:29)
[2021-11-26] MEDS ORDERED: HYDROmorphone INJ 1 MG/ML SYRINGE IV PRN (08:50)
[2021-11-26] MEDS ORDERED: ePHEDrine sulfate 50 MG/ML AMP IV PRN (08:50)
[2021-11-26] MEDS ORDERED: ATROPINE SULFATE 0.1 MG/ML 10ML SYR IV PRN (08:50)
[2021-11-26] MEDS ORDERED: LIDOCAINE 2% 2 ML VIAL/AMP(20MG/ML) INFIL ONE (09:41)
[2021-11-26] MEDS ORDERED: ONDANSETRON INJ 2 MG/ML 2 ML VIAL ONE (09:42)
[2021-11-26] MEDS ORDERED: PROPOFOL IV EMULSION 10 MG/ML 20 ML VIAL IV ONE ×2 (09:42→11:33)
--- NOTE | 2021-11-26 09:46 | History & Physical Bridge Note ---
Date of Service November 26, 2021 History & Physical Bridge Note I have examined the patient, reviewed the History & Physical and in the interval since the performance of the History & Physical I have noted the following changes of clinical significance: no changes noted
[2021-11-26] MEDS ORDERED: ORTHO JOINT ANESTHETIC ONE (09:56)
--- NOTE | 2021-11-26 12:01 | Operative Report ---
PG Post Operative Report Pre & Post Diagnosis Operation Date: 11/26/21 09:30 Pre-Op Diagnosis: Degenerative Joint Disease Left Knee Post-Op Diagnosis: Degenerative Joint Disease Left Knee I identified the patient and participated in the time-out.: Yes Procedure Operation Date: 11/26/21 09:30 Actual Procedures p Left Total Knee Arthroplasty, Cemented(Left) - Lamin Pereira DO Surgeon Lamin Pereira DO Advertising Production Manager Lamin Jackson PAC Estimated Blood Loss 30 Findings Consistent with Post-Op Diagnosis Specimens Left femoral and tibial bone Complications none Disposition Disposition: Recovery Room Indications Jarred is a pleasant 71-year-old male who has been doing with chronic increasing left knee pain. X-rays and clinical examination have been diagnostic for advanced osteoarthritis of the left knee. After failing conservative tr eatment, he elected proceed with a left total knee arthroplasty. Description of Procedure Implants used: I used a Aisha Persona total knee arthroplasty system with a size 11 standard femur, G tibia with a 30 mm stem extension, 34 oval patella, and a size 10 CPS polyethylene bearing. All components were cemented in place with Biomet cement. Jarred arrived [facility] for the above procedure. He was seen in the preoperative holding area and the operative extremity was identified and signed. He was given a preoperative antibiotic, TXA, a spinal anesthetic and an adductor nerve block. He was taken back to the operating room and laid on the table in supine position. He was given basic sedation. The operative knee was then prepped and draped in sterile fashion. A timeout was done, and the patient and the operative extremity was properly identified. A midline incision was made directly over the patella. Dissection was taken down to the extensor mechanism. A subvastus arthrotomy was used. The medial retinaculum was released and the fat pad was mostly excised. The knee was flexed and the ACL, PCL, and meniscus were removed. A drill was sent down the center of the femoral canal followed by an intramedullary paola. Off that paola a distal femoral cutting block was placed. 9 mm was resected off the distal femur at 5 of valgus. A posterior referencing AP sizing guide was then placed on the distal femur. The femur measured to be a size 11 standard. 2 drill holes were placed in 3 of external rotation. A 4-in-1 cutting block was then impacted into place. Anterior, posterior, and chamfer cuts were then made. The proximal tibia was then exposed. An external tibial alignment guide was placed. A tibial cut guide was then anchored in place and the proximal tibia was then resected. The posterior aspect of the knee was then opened up and any additional meniscus fragments and osteophytes were removed. The tibia measured to be a size G. The tibial plate was then placed in the appropriate rotation and the tibia was drilled and punched. Trial components were then placed. I used a size 10 CPS polyethylene insert. The knee was brought through a full range of motion and felt to be stable. The peg holes for the femoral component were then drilled. The patella was then everted and 9 mm was resected off the posterior aspect of the patella. The patella measured to be a size 34 oval. 3 peg holes were then drilled. A trial patella was placed. The knee was once again brought through a full range of motion and felt to be stable. Trial components were then removed. The surrounding soft tissues were injected with 100 cc of an orthopedic pain control cocktail. All components were then cemented into place with Biomet cement. The final polyethylene insert was then snapped into place. Once cement was dry the tourniquet was deflated. Hemostasis was obtained. A dilute betadyne lavage was then done for 3 minutes. The joint was then irrigated with normal saline solution. The subvastus arthrotomy was then closed with #1 Vicryl suture. The skin was closed with 2-0 Vicryl, 3-0V lock suture, and singh. A soft compressive dressing was placed. He was then transferred to a hospital bed and taken to the postanesthesia care unit in stable condition. He tolerated the procedure well. Lamin Jackson PA-C, was present for the entire procedure. He was critical for patient positioning, prepping, draping, retraction exposure, wound closure and application of sterile dressing. I attest to the content of the Intraoperative Record and any orders documented therein. Any exceptions are noted below.
--- NOTE | 2021-11-26 13:32 | XRay Report ---
XR knee LT 1 or 2V routine CLINICAL HISTORY: Surgical Post Op. Status post total knee replacement COMPARISON STUDY: No previous studies for comparison. TECHNIQUE: 2 left knee views FINDINGS: The patient is status post total knee replacement. The prosthetic components are in anatomi c alignment with no acute abnormality seen. Air is present within the soft tissues from the procedure . Skin singh are seen anteriorly. IMPRESSION: 1. Status post total knee replacement. ACT 112: Negative or not required by law. Electronically signed by: Lv Cavazos M.D. 11/26/2021 1:31 PM
[2021-11-26] MEDS ORDERED: bisacodyL 10 MG SUPP PR PRN (14:29)
[2021-11-26] MEDS ORDERED: NALOXONE HCL 0.4 MG/1 ML VIAL/CARP IV PRN (14:29)
[2021-11-26] MEDS ORDERED: PHARMACY GLYCEMIC MGMT CONSULT PRN (14:29)
[2021-11-26] MEDS ORDERED: oxyCODONE HCL IR 5 MG TAB (IMMEDIATE RELEASE) PO PRN (14:29)
[2021-11-26] MEDS ORDERED: HYDROmorphone INJ 0.5 MG/0.5 ML SYR IV PRN (14:29)
[2021-11-26] MEDS ORDERED: MAGNESIUM HYDROXIDE SUSP 30 ML UDC PO PRN (14:29)
[2021-11-26] MEDS ORDERED: METOCLOPRAMIDE HCL INJ 5 MG/ML 2 ML VIAL IV PRN (14:29)
[2021-11-26] MEDS: SODIUM CHLORIDE 0.9% 1000ML 1,000 ML IV SCH (14:44)
[2021-11-26] MEDS ORDERED: GLUCOSE 40% GEL 15 GM TUBE PO PRN (14:45)
[2021-11-26] MEDS ORDERED: DEXTROSE 50% 50 ML SYRINGE IV PRN (14:45)
[2021-11-26] MEDS ORDERED: CARBOHYDRATES FOR HYPOGLYCEMIA PO PRN (14:45)
[2021-11-26] MEDS ORDERED: GLUCOSE 10 TABS/TUBE PO PRN (14:45)
[2021-11-26] MEDS ORDERED: GLUCAGON FOR INJ 1 MG VIAL IM PRN (14:45)
--- NOTE | 2021-11-26 14:45 | Pharmacy Report ---
Pharmacy Glycemic Short Note 2 - Date of Service November 26, 2021 - Glycemic Short BSG Results (Last 24 hours): 11/26/21 11/26/21 08:10 12:14 POC Glucose 111 H 137 H OUTPATIENT ANTIDIABETIC REGIMEN: * Metformin 500 mg PO daily * HbA1c: 6.2% (11/05/21) ASSESSMENT: * CB is a 71 year old male POD #0 s/p left total knee arthroplasty * Received 8 mg PO dexamethasone preoperatively * Preop BSG of 111 mg/dL, postop BSG of 137 mg/dL * Outpatient HbA1c of 6.2% suggests excellent outpatient glycemic control PLAN FOR INPATIENT GLYCEMIC CONTROL: * Hold outpatient oral diabetes medications * Can likely restart tomorrow * Basal insulin * Lantus 10 units (~0.1 unit/kg) SC x 1 today to help cover PO dexamethasone * Bolus insulin * NovoLog per scale ACHS or Q6hrs while NPO * Goal Range: Low 110 mg/dL - High 140 mg/dL * Correction Factor: 20 mg/dL/unit * Nutritional / Prandial insulin per carb ratio of 1 unit per 7 grams CHO consumed
[2021-11-26] MEDS: ACETAMINOPHEN 500 MG TAB PO SCH ×2 (14:50→21:25)
[2021-11-26] MEDS ORDERED: LANTUS PER UNIT CHARGE SQ ONE (15:00)
--- NOTE | 2021-11-26 15:10 | Anesthesiology Progress Note ---
Date of Service November 26, 2021 Anesthesia Post Procedure Vital Signs Vital Signs: Temp Pulse Pulse Resp BP BP Pulse Ox 11/26/21 15:03 36.5 C 58 L 14 127/82 96 11/26/21 14:31 59 L 16 142/74 H 96 11/26/21 14:00 36.6 C 59 L 16 127/78 98 11/26/21 13:50 55 L 17 116/67 97 11/26/21 13:40 36.4 C L 57 L 14 120/83 99 11/26/21 13:30 53 L 22 101/68 97 11/26/21 13:20 56 L 14 112/77 98 11/26/21 13:12 53 L 17 103/67 97 11/26/21 13:00 56 L 19 122/75 97 11/26/21 12:50 61 16 121/84 97 11/26/21 12:40 62 18 121/76 94 11/26/21 12:30 60 13 117/78 95 11/26/21 12:20 60 13 115/74 98 11/26/21 12:11 36.3 C L 66 15 99/68 L 96 11/26/21 08:21 36.7 C 76 20 125/76 97 Transfer of Care Handoff Completed per policy Notes Mental Status: alert / awake / arousable Patient Amnestic to Procedure: Yes Nausea / Vomiting: adequately controlled Pain: adequately controlled Airway Patency, RR, SpO2: stable & adequate BP & HR: stable & adequate Hydration State: stable & adequate Neuraxial Anesthesia: was administered and sensory block is resolving Anesthetic Complications: no major complications apparent
[2021-11-26] MEDS: INSULIN ASPART PER UNIT SC SCH ×3 (16:02→21:17)
[2021-11-26] MEDS: KETOROLAC TROMETHAMINE 15 MG/ML VIAL IV SCH ×2 (16:03→20:52)
[2021-11-26] MEDS: ceFAZolin 2000MG 2,000 MG/15 ML SYR IV SCH (18:33)
[2021-11-26] MEDS: SENNA 8.6 MG TAB PO SCH ×2 (20:51→20:54)
[2021-11-26] MEDS: ASPIRIN 81 MG ECTAB PO SCH (20:51)
[2021-11-26] MEDS: DOCUSATE SODIUM 100 MG CAP PO SCH ×2 (20:51→20:53)
[2021-11-27] MEDS: SODIUM CHLORIDE 0.9% 1000ML 1,000 ML IV SCH (01:36)
[2021-11-27] MEDS: KETOROLAC TROMETHAMINE 15 MG/ML VIAL IV SCH ×2 (02:22→08:40)
[2021-11-27] MEDS: ceFAZolin 2000MG 2,000 MG/15 ML SYR IV SCH (02:23)
[2021-11-27] MEDS: ACETAMINOPHEN 500 MG TAB PO SCH ×2 (05:50→13:21)
--- NOTE | 2021-11-27 06:51 | Orthopedic Progress Note ---
Date of Service November 27, 2021 Assessment & Plan (1) Status post left knee replacement: Overall is doing very well. Is not having much pain in the left knee. He will be seen by physical therapy today for ambulation and range of motion exercises. He is on aspirin for DVT prophylaxis. The nursing staff can change his dressing after physical therapy. He can be discharged home later today. He will follow-up with orthopedics in 2 weeks. Carrol Stern was seen and examined at bedside this morning. Overall is doing very well. Is not having much pain in the left knee. He has been up and ambulating to the bathroom. He has no complaints. . Review of Systems All systems reviewed & are unremarkable except as noted in HPI & below. Physical Exam On physical examination of the left knee, the dressing is clean and dry. His leg is out in full extension. He has active dorsiflexion plantarflexion of the left ankle. . Results & Data Results & Data Laboratory Results . Diagnostic Findings Postoperative x-rays of the left knee show the prosthesis to be in anatomic alignment without any evidence of fracture, dislocation, or loosening . PG Care Time/CCT Total # of Minutes Spent Total Time Spent with Patient: Total time spent is greater than 50% in coordination of care (as documented) at patient's floor/unit and/or counseling patient: Coding Level of Care Code 19719 Post Operative Follow-Up Diagnoses Status post left knee replacement Z96.652
[2021-11-27] MEDS ORDERED: dexAMETHasone 4 MG TAB PO SCH (08:00)
[2021-11-27] MEDS ORDERED: LANTUS PER UNIT CHARGE SQ ONE (08:00)
[2021-11-27] MEDS: ASPIRIN 81 MG ECTAB PO SCH (08:40)
[2021-11-27] MEDS: DOCUSATE SODIUM 100 MG CAP PO SCH (08:43)
[2021-11-27] MEDS: INSULIN ASPART PER UNIT SC SCH ×2 (08:47→12:37)
[2021-11-27] MEDS ORDERED: amLODIPine BESYLATE 5 MG TAB PO SCH (09:00)
[2021-11-27] MEDS ORDERED: ATORVASTATIN 20 MG TAB PO SCH (09:00)
[2021-11-27] MEDS ORDERED: lisinopril 10 MG TAB PO SCH (09:00)
[2021-11-27] MEDS ORDERED: MULTIVITAMIN TAB PO SCH (09:00)
[2021-11-27] MEDS ORDERED: PANTOprazole 40 MG TAB PO SCH (09:00)
--- NOTE | 2021-11-27 15:06 | Discharge Summary ---
Date of Service November 27, 2021 Admission HPI (Per Admitting) Jarred is a pleasant 71-year-old male who is been doing with chronic worsening left knee pain. He has a history of an IM nail in his left leg. He has a history of a left quad repair back in the early 1980s. X-rays and clinical examination of the left knee have been diagnostic for osteoarthritis. I did a right knee replacement on him in 2019 he is done well with that. He elected proceed with a left total knee arthroplasty. Admission Exam (Per Admitting) On physical examination of the left knee, he has a varus deformity. His range of motion from 10 to 120 degrees. No instability. He has pain of the distal medial femoral condyle and over the medial joint line. Principal Diagnosis Same as "Discharge Diagnosis" noted below under Discharge Instructions. Discharge Exam On physical examination of the left knee, the dressing is clean and dry. His leg is out in full extension. He has active dorsiflexion plantarflexion of the left ankle. . Discharge Data Procedures Performed Operation Date: 11/26/21 09:30 Actual Procedures p Left Total Knee Arthroplasty, Cemented(Left) - Lamin Pereira DO Ordered Studies 11/26/21 05:00 US - OR guided needle placemen Routine Hospital Course (1) Status post left knee replacement: On November 26, 2021 Jarred arrived at [facility] and underwent a left knee replacement without complication. He had a spinal anesthetic. Postoperatively he was started on aspirin for DVT prophylaxis and transferred to general orthopedic floors. His hospital course was uneventful. On postop day #1 his vital signs were stable and his pain was well controlled. He was able to participate well with physical therapy doing ambulation and range of motion exercises. He was then discharged to home. He will follow-up with orthopedics in 2 weeks. PG Care Time/CCT Total # of Minutes Spent Total Time Spent with Patient: Total time spent is greater than 50% in coordination of care (as documented) at patient's floor/unit and/or counseling patient: Discharge Plan Discharge Items Patient Disposition: Home - Home Health Services Reason For Visit: DJD Knee Left Discharge Diagnosis: Left knee replacement Activity: Per Instructions section Non-emergency contact: Surgeon Call non-emergency contact if: your wound has increased redness and your wound has increased drainage Follow-up/Referrals: Александр Lujan MD [Primary Care Provider] - Diet: Regular Addtl Attending Provider Instructions: Activity and Therapy Recommendations: * If you are using [facility] then therapy will be provided at your home until they feel you have accomplished all of your goals. * If you are using [facility] then Physical Therapy will be provided until they feel you are ready to start Outpatient Physical Therapy. * If you are not using home therapy then Outpatient Physical Therapy should start about 3-5 days from your day of surgery. Therapy will last about 6-10 weeks * It is important not to put a pillow under your knee when you are relaxing or sleeping. It is just as important to make sure you are getting your knee perfectly straight as it is to regain your knee bend. * You were shown a series of exercises in the hospital. Do these exercises three times each day including the exercises you were shown in physical therapy. * Get up and walk several times each day. For the first four weeks, try not to stand or walk for more than one hour at a time. If you do stand or walk for more than one hour, you will not hurt anything, but your leg will likely swell. * As you feel comfortable, you may change from the walker or crutches to a cane and then to independent walking. Medications: * Narcotic You will likely be sent home from the hospital with a prescription for the narcotic pain medication that worked best throughout your stay. * Aspirin Most patients will be required to take Aspirin 81mg twice a day for 6 weeks after surgery. This is obtained [id number] and a prescription is not necessary. * Other medications may be prescribed for specific circumstances. If you have any questions, please call the office at . * Resume previous home medications unless otherwise instructed TEDs/Elastic Stockings: The white elastic stockings help limit swelling and prevent blood clots from forming in your legs.~ The more you wear them, the more they work. Wear them for six weeks. Dressing Care: The dressing can be changed after physical therapy on postop day #1. Daily dry dressing changes for a few days, especially if the incision is still draining some. If the incision is not draining then you may leave the singh open to air. If there is a little bit of drainage or if the singh are getting stuck on your clothing then cover the incision with a dry dressing. The singh will be removed at your 2 week follow-up appointment. Showering: You may shower 5 days from the day of surgery as long as the incision is no longer draining. You may shower with the singh exposed. Let soapy water run over the singh and pat them dry. Do not scrub or soak the incision. Things To Watch For: * Drainage from the incision site that occurs more than one week after your surgery. * Increased redness at the incision site. * Fever above 102 degrees Fahrenheit. * Unusual chest pain or shortness of breath. * Call [facility] at with any of the above problems Follow-Up Visit: Follow-up with Dr. Pereira's PA (Lamin Jackson) 2-3 weeks after your day of surgery. He will remove your singh and answer any questions. If you have any additional questions or concerns, Dr Pereira is usually in the office at the same time and will be available An appointment was probably scheduled when you signed-up for surgery in the office. If you have any questions call Office Instructions: More detailed instructions as well as Frequently Asked Questions were provided in a folder by our office when you signed-up for surgery. Please review these instructions when you get home. If you have any further questions or concerns, please feel free to call the o ffice at [phone] Pending Studies at Discharge: No Stand-Alone Forms: My [facility], Opioid Pain Management Medications and DC Order Prescriptions: New oxycodone-acetaminophen 5-325 mg tablet 1 tab PO Q6H PRN (Reason: pain) Qty: 30 RF: 0 aspirin [Adult Aspirin Regimen] 81 mg tablet,delayed release (DR/EC) 81 mg PO BID Qty: 84 RF: 0 Continued metformin 500 mg Tablet 500 mg PO QPM RF: 0 atorvastatin 20 mg Tablet 20 mg PO QAM RF: 0 amlodipine 10 mg Tablet 10 mg PO QAM RF: 0 omeprazole 20 mg Tablet,Delayed Release (Dr/Ec) 20 mg PO QAM RF: 0 multivitamin Tablet 1 tab PO QAM RF: 0 ascorbic acid (vitamin C) [Vitamin C] 1,000 mg Tablet 1,000 mg PO QAM RF: 0 ibuprofen 200 mg Capsule 800 mg PO QAM RF: 0 acetaminophen [Tylenol Extra Strength] 500 mg Tablet 1,000 mg PO QAM RF: 0 Probiotic 3 billion cell Capsule 3,000 mmu cells PO QAM RF: 0 Garlique 1 tab PO QAM RF: 0 vitamin B complex [B Complex-Vitamin B12] Tablet 1 tab PO DAILY RF: 0 Elderberry See Rx Instructions .ROUTE .COMPLEX RF: 0 Vitamin D3 See Rx Instructions .ROUTE .COMPLEX RF: 0 magnesium glycinate See Rx Instructions .ROUTE .COMPLEX RF: 0 vitamin A See Rx Instructions .ROUTE .COMPLEX RF: 0 lisinopril 10 mg Tablet 10 mg PO QAM RF: 0 Discharge Orders: Discharge Order (Routine); Ordered 11/27/21 Ordered By: Lamin Londono/Other Patient Handouts: Total Knee Replacement Admission Data Admit Date/Time: 11/26/21 12:13 Attending Provider: Lamin Pereira Admit Provider: Lamin Pereira Primary Care Provider: Александр Lujan Other Interventions: Discharge Summary Assessment (RN) Last Done: 11/27/21 08:30
== END 2021-11-27 13:58 | disposition home health service (06) ==
LOC: ASU 07:44 → 3E 07:44